=== PATIENT | male | born 1995 | race Caucasian/White ===

== ENCOUNTER 2017-11-19 21:37 | Emergency (ER) | payer SELFPAY ==
[~2017-11-19] VITALS: Ht 177.8 cm; Wt 66.8 kg
[2017-11-19 21:39] VITALS: BP 121/76; TEMP 98.7
[2017-11-19 23:31] VITALS: PULSE 72
== END 2017-11-19 23:35 | disposition home or self-care (01) ==
LOC: COL.ER 21:37
DX: S51.812A Laceration without foreign body of left forearm, initial encounter (principal); W25.XXXA Contact with sharp glass, initial encounter; Y99.0 Civilian activity done for income or pay

== ENCOUNTER 2017-11-27 09:25 | Emergency (ER) | payer SELFPAY ==
[2017-11-27 09:29] VITALS: BP 122/76; PULSE 18; TEMP 98.6
== END 2017-11-27 09:33 | disposition home or self-care (01) ==
LOC: COL.ER 09:25
DX: Z48.02 Encounter for removal of sutures (principal)

== ENCOUNTER 2018-01-06 17:04 | Emergency (ER) | payer BC ==
[~2018-01-06] VITALS: Ht 177.8 cm; Wt 64.5 kg
[2018-01-06 17:08] VITALS: TEMP 98.5
[2018-01-06 17:37] LABS: COLLECTION METHOD CLEAN CATCH
[2018-01-06 17:41] LABS: BASO % 0.5 % (0.0-2.0); EOS # 0.1 (0.0-0.7); EOS % 0.8 % (0-4.0); GRAN % 54.6 % (42.2-75.2); HEMOGLOBIN 14.7 g/dl (13.5-18.0); LYMPH # 2.6 (1.2-3.4); LYMPH % 35.8 % (20.0-51.0); MEAN CELL VOLUME 92 fl (80.0-100.0); MEAN CORPUSCULAR HEMOGLOBIN 31 pg (27.0-31.0); MEAN CORPUSCULAR HGB CONC 34 g/dl (33.0-37.0); MONO # 0.6 (0.1-0.6); MONO % 8.2 % (1.7-9.3); PLATELET COUNT 263 K/mm3 (130-400); RED BLOOD COUNT 4.69 M/mm3 (4.20-5.60); REDCELL DISTRIBUTION WIDTH-CV 11.6 % (11.5-14.5)
[2018-01-06 17:44] LABS: MUCOUS Present /lpf; PH 5 (5-8); SQUAMOUS EPITHELIAL None Seen /hpf; URINE APPEARANCE Clear; URINE BACTERIA None Seen /hpf; URINE BILIRUBIN Negative (NEGATIVE); URINE BLOOD Negative (NEGATIVE); URINE COLOR Yellow; URINE GLUCOSE Negative (NEGATIVE); URINE KETONE Negative (NEGATIVE); URINE LEUKOCYTE ESTERASE Negative (NEGATIVE); URINE NITRATE Negative (NEGATIVE); URINE PROTEIN(semi-quant) Negative (NEGATIVE); URINE RBC None Seen /hpf; URINE UROBILINOGEN Negative (NEGATIVE)
[2018-01-06 17:47] LABS: ALBUMIN 4.2 gm/dL (3.5-5.0); BILIRUBIN,TOTAL 0.6 mg/dL (0.0-1.0); CREATININE, serum 0.79 mg/dL (0.66-1.25); POTASSIUM 3.7 mmol/L (3.4-5.0); TOTAL PROTEIN 6.9 gm/dL (6.4-8.2)
[2018-01-06 19:42] VITALS: BP 107/67; PULSE 69
== END 2018-01-06 19:42 | disposition home or self-care (01) ==
LOC: COL.ER 17:04
PROVIDERS: Emergency Medicine
DX: R10.31 Right lower quadrant pain (principal)
CPT/HCPCS: J2765; J3010; J7030; Q9967

== ENCOUNTER → 2018-04-13 | Outpatient (CLI) | payer SELFPAY | LOC: COL.LAB 12:57 | DX: K58.9 Irritable bowel syndrome, unspecified (principal); R53.82 Chronic fatigue, unspecified ==

== ENCOUNTER → 2018-09-09 | Emergency (ER) | payer BC ==
[~2018-09-09] VITALS: Ht 177.8 cm; Wt 63.6 kg
[~2018-09-09] MED LIST: CLEOCIN HCL300 MG PO; NORCO 325 MG-51 TAB PO
[2018-09-09 09:38] LABS: BASO % 0.3 % (0.0-2.0); EOS % 0.2 % (0-4.0); GRAN # 11.5 (1.4-6.5); GRAN % 80.8 % (42.2-75.2); HEMATOCRIT 44.7 % (42.0-52.0); LYMPH # 1.4 (1.2-3.4); LYMPH % 10.1 % (20.0-51.0); MEAN CELL VOLUME 94 fl (80.0-100.0); MEAN CORPUSCULAR HEMOGLOBIN 32 pg (27.0-31.0); MEAN CORPUSCULAR HGB CONC 34 g/dl (33.0-37.0); MEAN PLATELET VOLUME 10.2 fl (7.4-10.4); MONO # 1.2 (0.1-0.6); MONO % 8.2 % (1.7-9.3); PLATELET COUNT 251 K/mm3 (130-400); RED BLOOD COUNT 4.76 M/mm3 (4.20-5.60); REDCELL DISTRIBUTION WIDTH-CV 11.9 % (11.5-14.5)
[2018-09-09 09:50] LABS: ALBUMIN 4.2 gm/dL (3.5-5.0); BILIRUBIN,TOTAL 0.9 mg/dL (0.0-1.0); C-REACTIVE PROTEIN 0.8 mg/dL (0.0-0.9); CALCIUM 9.5 mg/dL (8.4-10.2); CREATININE, serum 0.89 (0.66-1.25); POTASSIUM 4.2 mmol/L (3.4-5.0); TOTAL PROTEIN 7.5 gm/dL (6.4-8.2)
[2018-09-09 09:55] LABS: MONOSCREEN NEGATIVE
[2018-09-09 11:55] VITALS: BP 112/65; PULSE 73; TEMP 98.1
== END ==
LOC: COL.ER 09:02
PROVIDERS: Physician Assistant
DX: J03.90 Acute tonsillitis, unspecified (principal)
CPT/HCPCS: J1885; J2405; J7030